=== PATIENT | female | born 1980 | race Caucasian/White ===

== ENCOUNTER 2021-11-17 15:18 | Emergency (ER) | payer MEDICAID ==
[~2021-11-17] VITALS: Ht 165.1 cm; Wt 99.5 kg
[2021-11-17 15:53] LABS: CLARITY,URINE SLIGHTLY CLOUDY (Clear); COLOR,URINE YELLOW (Yellow); GLUCOSE, URINE NEGATIVE (Neg); KETONES,URINE 15 mg/dl (Neg); LEUKOCYTE ESTERASE ,URINE NEGATIVE (Neg); NITRITES, URINE NEGATIVE (Neg); OCCULT BLOOD,URINE SMALL (Neg); PROTEIN,URINE NEGATIVE (Neg); URINE HCG NEGATIVE (NEG); UROBILINOGEN,URINE 0.2 E.U/dL (0.2-1.0)
[2021-11-17 15:56] LABS: HEMOGLOBIN 15.4 g/dl (12.0-16.0); LYMPHOCYTES # (AUTO) 0.8 X10'3 (1.1-4.8); MEAN CORPUSCULAR VOLUME 87.8 FL (78-98); MEAN PLATELET VOLUME 7.3 FL (7.4-10.4); MONOCYTES # (AUTO) 0.5 X10'3 (0-0.9); WHITE BLOOD COUNT 5.3 X10'3 (4.5-11.0)
[2021-11-17 15:57] LABS: BASOPHILS % (AUTO) 0.3 % (0-1); EOSINOPHILS % (AUTO) 0.7 % (0-6); HEMATOCRIT 45.4 % (35.0-45.0); MEAN CORPUSCULAR HEMOGLOBIN 29.8 PG (27.0-31.0); MONOCYTES % (AUTO) 9.8 % (2-12); NEUTROPHILS # (AUTO) 3.9 X10'3 (1.8-7.7); NEUTROPHILS % (AUTO) 73.2 % (42-75); PLATELET COUNT 202 X10'3 (140-440); RED BLOOD COUNT 5.18 X10'6 (4.20-5.60); RED CELL DISTRIBUTION WIDTH 12.9 % (11.5-14.5)
[2021-11-17 15:59] LABS: UA COLLECTION TYPE CLN CATCH MIDSTREAM
[2021-11-17 16:01] LABS: D-DIMER 0.82 MG/L FEU (0-0.50)
[2021-11-17 16:01] LABS: BACTERIA,URINE FEW /HPF (Neg); FINE GRANULAR CAST 0-3 /LPF (NEGATIVE); MUCUS STRANDS MODERATE /LPF (Neg); SQUAMOUS EPITHELIAL CELL,UR FEW /LPF (FEW); WBC,URINE 0-4 /HPF (0-4)
[2021-11-17 16:05] LABS: ALANINE AMINOTRANSFERASE 31 U/L (12-78); ALBUMIN 3.9 G/DL (3.4-5.0); ALBUMIN/GLOBULIN RATIO 1.1 (1.1-1.5); ALKALINE PHOSPHATASE 63 IU/L (46-116); ANION GAP 7 (8-16); ASPARTATE AMINO TRANSFERASE 24 U/L (10-37); BILIRUBIN,TOTAL 0.6 MG/DL (0.1-1.0); BLOOD UREA NITROGEN 10 MG/DL (7-18); BUN/CREATININE RATIO 13.7 (6.6-38.0); CALCIUM 8.8 MG/DL (8.5-10.1); CHLORIDE 100 MMOL/L (99-107); CREATININE 0.73 MG/DL (0.40-0.90); GLUCOSE 101 MG/DL (70-104); POTASSIUM 3.6 MMOL/L (3.5-5.1); SODIUM 135 MMOL/L (135-145); TOTAL CARBON DIOXIDE 27.6 MMOL/L (24-32); TOTAL PROTEIN 7.6 G/DL (6.4-8.2); eGFR 88 ML/MIN
[2021-11-17 16:12] LABS: LIPASE 81 U/L (73-393)
[2021-11-17] MEDS ORDERED: LIDOcaine Viscous 15ml cup MM ONE (16:25)
[2021-11-17] MEDS ORDERED: mag hydrox/Alum hydrox/simeth 30ml oral suspension PO ONE (16:25)
[2021-11-17] MEDS ORDERED: sucralfate 1 gm tablet PO ONE (16:25)
[2021-11-17 18:03] VITALS: BP 139/76
== END 2021-11-17 18:05 | disposition home or self-care (01) ==
LOC: ER 15:18 → EEVIPCON 15:18 → ER 18:05
DX: R07.89 Other chest pain (principal); R10.31 Right lower quadrant pain; I10 Essential (primary) hypertension; Z90.49 Acquired absence of other specified parts of digestive tract; Z88.1 Allergy status to other antibiotic agents; Z79.899 Other long term (current) drug therapy
CPT/HCPCS: 36415; 71045; 80053; 81001; 81025; 83690; 83880; 84484; 85025; 85379; 93970; 99283; 99285

== ENCOUNTER 2021-11-17 23:28 | Emergency (ER) | payer MEDICAID ==
[~2021-11-17] VITALS: Ht 165.1 cm; Wt 99.5 kg
[2021-11-18 00:07] LABS: BASOPHILS % (AUTO) 0.3 % (0-1); EOSINOPHILS % (AUTO) 0.3 % (0-6); HEMATOCRIT 43.2 % (35.0-45.0); LYMPHOCYTES # (AUTO) 0.9 X10'3 (1.1-4.8); LYMPHOCYTES % (AUTO) 18.6 % (21-51); MEAN CORPUSCULAR HEMOGLOBIN 30.3 PG (27.0-31.0); MEAN CORPUSCULAR HGB CONC 34.7 g/dL (33.0-36.5); MEAN CORPUSCULAR VOLUME 87.3 FL (78-98); MEAN PLATELET VOLUME 7.4 FL (7.4-10.4); MONOCYTES # (AUTO) 0.5 X10'3 (0-0.9); MONOCYTES % (AUTO) 9.1 % (2-12); NEUTROPHILS # (AUTO) 3.6 X10'3 (1.8-7.7); NEUTROPHILS % (AUTO) 71.7 % (42-75); PLATELET COUNT 185 X10'3 (140-440); RED BLOOD COUNT 4.95 X10'6 (4.20-5.60)
[2021-11-18 00:14] LABS: D-DIMER 1.23 MG/L FEU (0-0.50)
[2021-11-18 00:17] LABS: ALANINE AMINOTRANSFERASE 24 U/L (12-78); ALBUMIN 3.5 G/DL (3.4-5.0); ALKALINE PHOSPHATASE 56 IU/L (46-116); ANION GAP 10 (8-16); ASPARTATE AMINO TRANSFERASE 24 U/L (10-37); BILIRUBIN,TOTAL 0.7 MG/DL (0.1-1.0); BLOOD UREA NITROGEN 9 MG/DL (7-18); BUN/CREATININE RATIO 11.8 (6.6-38.0); CALCIUM 8.5 MG/DL (8.5-10.1); CHLORIDE 101 MMOL/L (99-107); CREATININE 0.76 MG/DL (0.40-0.90); GLUCOSE 113 MG/DL (70-104); POTASSIUM 3.5 MMOL/L (3.5-5.1); SODIUM 134 MMOL/L (135-145); TOTAL CARBON DIOXIDE 22.6 MMOL/L (24-32); TOTAL PROTEIN 6.9 G/DL (6.4-8.2); eGFR 84 ML/MIN
[2021-11-18] MEDS ORDERED: IOHEXOL 350 MG/ML INFUS..BTL 125ML IV ONE (00:53)
--- NOTE | 2021-11-18 00:56 | NUR ---
PT TO CT
[2021-11-18] MEDS ORDERED: ketorolac trometh. 30mg/ml inj. IV ONE (02:15)
[2021-11-18 05:50] VITALS: BP 123/75
== END 2021-11-18 06:07 | disposition home or self-care (01) ==
LOC: ER 23:29
DX: R07.89 Other chest pain (principal); Z20.822 Contact with and (suspected) exposure to COVID-19; I10 Essential (primary) hypertension; Z90.49 Acquired absence of other specified parts of digestive tract; Z88.1 Allergy status to other antibiotic agents
CPT/HCPCS: 36415; 71275; 80053; 83880; 84484; 85025; 85379; 87635; 93005; 96374; 99285; C9803; J1885; Q9967

== ENCOUNTER 2023-10-10 15:05 | Emergency (ER) | payer MEDICAID ==
[~2023-10-10] VITALS: Ht 165.1 cm; Wt 102.7 kg
[2023-10-10 15:08] VITALS: BP 179/100; PULSE 89; TEMP 98.7; O2SAT 98
[2023-10-10 15:33] VITALS: RESP 16
[2023-10-10] MEDS ORDERED: CEFD300C3 PO (15:43)
== END 2023-10-10 15:51 | disposition home or self-care (01) ==
LOC: ER 15:05
DX: J20.9 Acute bronchitis, unspecified (principal); I10 Essential (primary) hypertension; Z90.49 Acquired absence of other specified parts of digestive tract; Z88.8 Allergy status to other drugs, medicaments and biological substances
CPT/HCPCS: 99283

== ENCOUNTER 2024-12-21 13:57 | Emergency (ER) | payer BC ==
[~2024-12-21] VITALS: Ht 165.1 cm; Wt 95.0 kg
--- NOTE | 2024-12-21 14:03 | ELECTROCARDIOGRAPH REPORT ---
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 Ozzy Stone Measurements Intervals [place] Rate: 68 P: 17 KS: 157 QRS: 38 QRSD: 90 T: 30 QT: 398 QTc: 424 Interpretive Statements Sinus rhythm Baseline wander in lead(s) I,III,aVL,V1 Electronically Signed On 01-10-2025 23:36:[address] Ozzy Stone Please click the below link to view image of tracing.
[2024-12-21 14:04] VITALS: TEMP 97.4
--- NOTE | 2024-12-21 14:19 | Physician Documentation ---
History of Present Illness ~ Chief Complaint: Chest Pain Stated Complaint: CHEST PAIN Time Seen by MD: 15:11 [facility] Source: patient, RN/ HPI 44-year-old female presents to the emergency department due to midsternal chest pain. She denies shortness of breath. She reports that the pain is made worse with movement of both arms. She denies recent aggravating activities. She denies chills or fever. Patient has no other concern or complaint at this time. Medication Reconciliation Allergies: Coded Allergies: doxycycline (Verified Allergy, Unknown, THROW UP, 11/17/21) Uncoded Allergies: TAPE (Allergy, Unknown, RASH, 11/17/21) Past Medical History Past Medical History: *CARDIOVASCULAR*, Hypertension, Cholelithiasis Past Surgical History: cholecystectomy Alcohol Use: None Drug Use: none Lives In: Home Occupation: employed Review of Systems ROS As stated above in the HPI, otherwise all systems are reviewed and negative. Constitutional: Denies: chills, fever, weakness Eyes: Denies: pain, blurred vision ENT: Denies: ear pain, nose pain, throat pain, mouth pain Respiratory: Denies: cough, shortness of breath Cardiovascular: Denies: chest pain, palpitations Gastrointestinal: Denies: abdominal pain, nausea, vomiting Genitourinary: Denies: burning, dysuria Female Genitalia: Denies: vaginal discharge, pelvic pain Neurological: Denies: headache, dizziness Musculoskeletal: Denies: pain, swelling Integumentary: Denies: rash, lesions Allergic/Immunologic: Denies: hives, itching Hematologic/Lymphatic: Denies: no symptoms reported Psychiatric: Denies: depression, anxiety Physical Exam Vital Signs: Temperature: 97.4, Source: Temporal, Heart Rate: 73, Respiratory Rate: 16, BP: 152/83, Pulse Oximetry: 99, Weight: 95.000 Oxygen Flow Rate: 0 Physical Exam General: Alert, no apparent distress. Neck: Full range of motion. Respiratory: Lungs clear, no respiratory distress. Chest: Patient on exam does have highly reproducible chest pain or tenderness to palpation of the mid sternum on exam. No accessory muscle use. Cardiovascular: Regular rate and rhythm, no murmurs. Gastrointestinal: Soft, nontender, nondistended. Bowels sounds present. Extremities: Normal range of motion, no deformity. Neurologic: Oriented x4. Psychiatric: Normal mood and affect. Skin: Normal color, warm and dry. No edema, no ecchymosis. Progress Results/Orders Results/Orders Vital Signs 12/21/24 12/21/24 12/21/24 14:04 15:17 15:18 Temp 97.4 Pulse 73 66 Resp 16 17 B/P (MAP) 152/83 135/92 (106) Pulse Ox 99 98 O2 Flow Rate 0 0 Laboratory Tests Test 12/21/24 14:08 12/21/24 15:54 White Blood Count 7.3 Red Blood Count 4.90 Hemoglobin 14.6 Hematocrit 42.7 Mean Corpuscular Volume 87.1 Mean Corpuscular Hemoglobin 29.8 Mean Corpuscular Hemoglobin Concent 34.2 Red Cell Distribution Width 12.9 Platelet Count 316 Mean Platelet Volume 7.5 Neutrophils (%) (Auto) 48.0 Lymphocytes (%) (Auto) 43.1 Monocytes (%) (Auto) 7.3 Eosinophils (%) (Auto) 1.1 Basophils (%) (Auto) 0.5 Neutrophils # (Auto) 3.5 Lymphocytes # (Auto) 3.1 Monocytes # (Auto) 0.5 Eosinophils # (Auto) 0.1 Basophils # (Auto) 0.0 CBC Comment Sodium Level 139 Potassium Level 3.7 Chloride Level 105 Carbon Dioxide Level 29.3 Anion Gap 5 L Blood Urea Nitrogen 9 Creatinine 0.69 Estimated GFR/1.73 m2 > 90 BUN/Creatinine Ratio 13.0 Glucose Level 94 Calcium Level 9.0 Total Bilirubin 0.5 Aspartate Amino Transf (AST/SGOT) 18 Alanine Aminotransferase (ALT/SGPT) 26 Alkaline Phosphatase 73 Troponin I High Sensitivity < 4 L Troponin I High Sens Percent Delta Troponin I Hi Sens Absolute Change Pro-B-Type Natriuretic Peptide 190 H Total Protein 7.6 Albumin 4.0 Globulin 3.6 Albumin/Globulin Ratio 1.1 Chemistry Comments Medical Decision Making Findings 44-year-old female presents to the emergency department due to midsternal chest pain. She denies shortness of breath. She reports that the pain is made worse with movement of both arms. She denies recent aggravating activities. She denies chills or fever. Patient has no other concern or complaint at this time. Patient did have highly reproducible chest pain on exam and the low suspicion for cardiac involvement with troponins being unremarkable and very low. Patient declined Toradol shot today. Patient will take Tylenol and ibuprofen as needed for symptomatic relief. Patient will follow up with primary care in 1-3 days if no better as needed sooner. Return to ED with any worsening, concerning or changing symptoms Departure Disposition: 01 HOME / SELF CARE / HOMELESS Impression: Primary Impression: Chest wall pain Condition: Stable Discharge Instructions: Nonspecific Chest Pain, Adult Additional Instructions: Patient did have highly reproducible chest pain on exam and the low suspicion for cardiac involvement with troponins being unremarkable and very low. Patient declined Toradol shot today. Patient will take Tylenol and ibuprofen as needed for symptomatic relief. Patient will follow up with primary care in 1-3 days if no better as needed sooner. Return to ED with any worsening, concerning or changing symptoms Referrals: NO PRIMARY CARE PROVIDER (PCP) Signature Scribe Signature: No scribe Attestation: No scribe FELISHA YANCEY ENGINEERING ANALYST Dec 21, 2024 14:19 KODY MOJICA PAC Dec 21, 2024 16:24
--- NOTE | 2024-12-21 14:28 | RADIOLOGY REPORT ---
CHEST RADIOGRAPH Indication: CP Technique: Single frontal view of the chest was obtained COMPARISON: CHEST,SINGLE VIEW on DOS: 11/17/21 FINDINGS: Lines and Tubes: None Lungs: Clear Pleura: No effusion. No pneumothorax. Cardiomediastinal contours: Unremarkable Bones: Unremarkable IMPRESSION: No acute disease.
[2024-12-21 14:29] LABS: MEAN PLATELET VOLUME 7.5 FL (7.4-10.4); RED CELL DISTRIBUTION WIDTH 12.9 % (11.5-14.5)
[2024-12-21 14:40] LABS: CREATININE 0.69 MG/DL (0.40-0.90); PRO BRAIN NATRIURETIC PEPTIDE 190 PG/ML (0-125); TOTAL CARBON DIOXIDE 29.3 MMOL/L (24-32); eCRCL 94 ML/MIN; eGFR > 90 ML/MIN
[2024-12-21 16:39] VITALS: BP 136/67; PULSE 65; RESP 14; O2SAT 98
== END 2024-12-21 16:42 | disposition home or self-care (01) ==
LOC: ER 13:57
DX: R07.2 Precordial pain (principal); I10 Essential (primary) hypertension; R06.02 Shortness of breath; Z88.1 Allergy status to other antibiotic agents; Z90.49 Acquired absence of other specified parts of digestive tract
CPT/HCPCS: 36415; 71045; 80053; 83880; 84484; 85025; 93005; 99285